=== PATIENT | male | born 1960 | race Caucasian/White ===

== ENCOUNTER 2020-02-25 19:34 | Emergency (ER) | payer BC ==
[~2020-02-25] VITALS: Ht 167.6 cm; Wt 68.8 kg
[~2020-02-25 19:34] MED LIST: ATOR20TA66 PO; CHOL2000 PO; FISH OIL OMEGA1 EACH PO; LOSA25TA96 PO; MILK175C PO; MULT-785 PO; ZOF4T PO
[2020-02-25 19:40] VITALS: BP 110/92
[2020-02-25] MEDS ORDERED: LIDOcaine 1% W/epiNEPHrine 1:200,000 10ml vial IJ ONE (21:05)
--- NOTE | 2020-02-25 21:16 | NUR ---
Jeffery Barba numbing patient's thumb. Patient tolerated well. No distress observed. Continue to monitor.
== END 2020-02-25 21:37 | disposition home or self-care (01) ==
LOC: ER 19:34
DX: S61.012A Laceration without foreign body of left thumb without damage to nail, initial encounter (principal); I10 Essential (primary) hypertension; G89.29 Other chronic pain; Z98.890 Other specified postprocedural states; Z79.899 Other long term (current) drug therapy; W23.0XXA Caught, crushed, jammed, or pinched between moving objects, initial encounter; Y93.89 Activity, other specified; Y92.89 Other specified places as the place of occurrence of the external cause; Y99.8 Other external cause status
CPT/HCPCS: 12001; 99282

== ENCOUNTER 2023-10-04 09:37 | Emergency (ER) | payer BC, OTHER ==
[~2023-10-04] VITALS: Ht 167.6 cm; Wt 70.5 kg
[~2023-10-04 09:37] MED LIST changes: +LOSA-415 PO; -LOSA25TA96 PO
[2023-10-04 10:08] LABS: BASOPHILS # (AUTO) 0.1 X10'3 (0-0.2); BASOPHILS % (AUTO) 0.7 % (0-1); EOSINOPHILS # (AUTO) 0.1 X10'3 (0-0.9); EOSINOPHILS % (AUTO) 1.2 % (0-6); HEMATOCRIT 50.6 % (42.0-52.0); HEMOGLOBIN 17.2 g/dl (14.0-17.9); LYMPHOCYTES # (AUTO) 1.9 X10'3 (1.1-4.8); LYMPHOCYTES % (AUTO) 22.9 % (21-51); MEAN CORPUSCULAR HEMOGLOBIN 29.8 PG (27.0-31.0); MEAN CORPUSCULAR VOLUME 87.4 FL (78-98); MEAN PLATELET VOLUME 8.3 FL (7.4-10.4); MONOCYTES # (AUTO) 0.6 X10'3 (0-0.9); MONOCYTES % (AUTO) 6.8 % (2-12); NEUTROPHILS # (AUTO) 5.7 X10'3 (1.8-7.7); NEUTROPHILS % (AUTO) 68.4 % (42-75); PLATELET COUNT 213 X10'3 (140-440); RED BLOOD COUNT 5.79 X10'6 (4.70-6.10); RED CELL DISTRIBUTION WIDTH 12.6 % (11.5-14.5); WHITE BLOOD COUNT 8.3 X10'3 (4.5-11.0)
[2023-10-04 10:23] LABS: ALANINE AMINOTRANSFERASE 40 U/L (12-78); ALBUMIN 4.1 G/DL (3.4-5.0); ALBUMIN/GLOBULIN RATIO 1.1 (1.1-1.5); ALKALINE PHOSPHATASE 63 IU/L (46-116); ASPARTATE AMINO TRANSFERASE 26 U/L (10-37); BILIRUBIN,TOTAL 0.7 MG/DL (0.1-1.0); BLOOD UREA NITROGEN 24 MG/DL (7-18); BUN/CREATININE RATIO 18.9 (10.0-20.0); CALCIUM 9.2 MG/DL (8.5-10.1); CREATININE 1.27 MG/DL (0.60-1.10); GLUCOSE 108 MG/DL (70-104); POTASSIUM 4.3 MMOL/L (3.5-5.1); SODIUM 143 MMOL/L (135-145); TOTAL CARBON DIOXIDE 24.2 MMOL/L (24-32); TOTAL PROTEIN 7.7 G/DL (6.4-8.2); eCRCL 52 ML/MIN; eGFR 57 ML/MIN
[2023-10-04 10:31] LABS: PRO BRAIN NATRIURETIC PEPTIDE 44 PG/ML (0-125)
[2023-10-04 10:36] LABS: ANION GAP 12 (8-16); CHLORIDE 107 MMOL/L (99-107)
[2023-10-04] MEDS ORDERED: iohexol 350MG/ML 100ml bottle IV ONE (14:00)
[2023-10-04 19:52] VITALS: BP 170/89; PULSE 61; RESP 12; TEMP 98; O2SAT 98
== END 2023-10-04 19:54 | disposition home or self-care (01) ==
LOC: ER 09:37
DX: R42 Dizziness and giddiness (principal); E78.00 Pure hypercholesterolemia, unspecified; I10 Essential (primary) hypertension; Z79.899 Other long term (current) drug therapy; Z91.011 Allergy to milk products
CPT/HCPCS: 36415; 70496; 70498; 80053; 83880; 84484; 85025; 93005; 99285; J3490; Q9967

== ENCOUNTER 2023-12-31 15:34 | Emergency (ER) | payer OTHER ==
[~2023-12-31] VITALS: Ht 165.1 cm; Wt 69.2 kg
[2023-12-31] MEDS ORDERED: IBUP-1984 PO (17:34)
[2023-12-31] MEDS ORDERED: OXYC-145 PO (17:34)
[2023-12-31] MEDS: ketorolac tromethamine 15mg/ml inj. IM ONE (17:49)
[2023-12-31 18:37] VITALS: BP 155/90; PULSE 82; RESP 15; TEMP 98.1; O2SAT 95
== END 2023-12-31 18:39 | disposition home or self-care (01) ==
LOC: ER 15:35
DX: M25.562 Pain in left knee (principal); E78.00 Pure hypercholesterolemia, unspecified; I10 Essential (primary) hypertension; Z79.899 Other long term (current) drug therapy
CPT/HCPCS: 29505; 73564; 96372; 99283; J1885